=== PATIENT | male | born 1940 | race Caucasian/White ===

== ENCOUNTER 2016-07-28 05:53 | Emergency (ER) | payer BC ==
[~2016-07-28] VITALS: Ht 172.7 cm; Wt 79.5 kg
[2016-07-28 06:50] LABS: MEAN PLAT.VOLUME 8.8 uM^3 (9.0-12.4); PLATELET COUNT 218 K/uL (156-360)
[2016-07-28 07:27] LABS: ANION GAP 8 MEQ/L (2-14); CHLORIDE 104 MEQ/L (99-109); GFR ESTIMATE (CALCULATED) 53 mL/min/; GLUCOSE 135 mg/dL (70-99); POTASSIUM 4.8 MEQ/L (3.7-5.4); SAMPLE HEMOLYSIS CHECK 0; SAMPLE ICTERIC CHECK 0; SAMPLE LIPEMIA CHECK 0; SODIUM 137 MEQ/L (136-147); UREA NITROGEN (BUN) 34 mg/dL (9-23)
[2016-07-28 07:34] LABS: HEMATOCRIT 42.6 % (38.0-50.0); MCH 28.8 PG (29.0-34.0); MCHC 31.5 G/DL (30.0-36.0); MCV 91.4 FL (86-99); RBC DIS.WIDTH-CV 15.2 % (11.8-14.6); RED BLOOD COUNT 4.66 M/uL (4.00-5.50)
[2016-07-28 07:35] LABS: WHITE BLOOD COUNT 89.6 K/uL (4.1-10.2)
[2016-07-28] MEDS ORDERED: NORCO 5/3251 TABLET PO (11:32)
[2016-07-28 11:53] VITALS: BP 137/86
== END 2016-07-28 11:55 | disposition home or self-care (01) ==
LOC: EME 05:53
PROVIDERS: Emergency Medicine
DX: S22.42XA Multiple fractures of ribs, left side, initial encounter for closed fracture (principal); S27.321A Contusion of lung, unilateral, initial encounter; W06.XXXA Fall from bed, initial encounter; C91.10 Chronic lymphocytic leukemia of B-cell type not having achieved remission; D72.829 Elevated white blood cell count, unspecified
CPT/HCPCS: 71020; 71250; 80048; 85027; 99281; 99284

== ENCOUNTER 2016-11-22 22:18 | Observation (INO) | payer OTHER, BC ==
[~2016-11-22] VITALS: Ht 172.7 cm; Wt 89.9 kg
[~2016-11-22 22:18] MED LIST: NORCO 5/3251 TABLET PO
[2016-11-22 22:51] LABS: MEAN PLAT.VOLUME 9.9 uM^3 (9.0-12.4); PLATELET COUNT 170 K/uL (156-360)
[2016-11-22 22:57] LABS: HEMATOCRIT 42.1 % (38.0-50.0); MCH 30.8 PG (29.0-34.0); MCHC 33.3 G/DL (30.0-36.0); MCV 92.5 FL (86-99); RBC DIS.WIDTH-CV 13.7 % (11.8-14.6); RBC DIS.WIDTH-SD 46.2 % (39-53); RED BLOOD COUNT 4.55 M/uL (4.00-5.50); WHITE BLOOD COUNT 36.6 K/uL (4.1-10.2)
[2016-11-22 23:04] LABS: CHLORIDE 110 mEq/L (99-109); POTASSIUM 4.1 mEq/L (3.7-5.4); SODIUM 139 mEq/L (136-147)
[2016-11-22 23:06] LABS: GLUCOSE 153 mg/dL (70-99)
[2016-11-22 23:07] LABS: ANION GAP 10 MEQ/L (2-14)
[2016-11-22 23:09] LABS: GFR ESTIMATE (CALCULATED) > 59 mL/min/
[2016-11-22 23:10] LABS: UREA NITROGEN (BUN) 30 mg/dL (9-23)
[2016-11-22 23:18] LABS: TROP-I INTERPRETATION NEGATIVE; TROPONIN-I < 0.01 ng/mL (0.0-0.30)
[2016-11-23] MEDS ORDERED: FENOFIBRATE54 M1 PO (00:36)
[2016-11-23] MEDS ORDERED: LISINOPRIL5 MG PO (00:36)
[2016-11-23] MEDS ORDERED: ZOCOR80 MG PO (00:36)
[2016-11-23] MEDS ORDERED: TIZANIDINE HCL4 MG PO (00:36)
[2016-11-23] MEDS ORDERED: TAMSULOSIN HCL0.4 MG PO (00:36)
[2016-11-23] MEDS ORDERED: PEPCID20 MG PO (00:36)
[2016-11-23] MEDS ORDERED: LITE COAT ASPI325 M1 PO (00:37)
[2016-11-23 04:56] LABS: TROP-I INTERPRETATION NEGATIVE; TROPONIN-I < 0.01 ng/mL (0.0-0.30)
[2016-11-23 09:00] VITALS: BP 152/69
[2016-11-23 12:46] VITALS: BP 167/87
[2016-11-23 16:26] VITALS: BP 165/75
[2016-11-23 17:04] LABS: TROP-I INTERPRETATION NEGATIVE; TROPONIN-I 0.02 ng/mL (0.0-0.30)
== END 2016-11-23 17:37 | disposition home or self-care (01) ==
LOC: EME 22:18 → EDOF 11-23 03:29 → ENRESERV 11-23 03:30 → 5WEST 11-23 08:31
PROVIDERS: Hospitalist; Internal Medicine
DX: R07.9 Chest pain, unspecified (principal); I10 Essential (primary) hypertension; C91.10 Chronic lymphocytic leukemia of B-cell type not having achieved remission; E78.5 Hyperlipidemia, unspecified; N40.0 Benign prostatic hyperplasia without lower urinary tract symptoms; K21.9 Gastro-esophageal reflux disease without esophagitis; Z82.49 Family history of ischemic heart disease and other diseases of the circulatory system; Z79.82 Long term (current) use of aspirin; G62.9 Polyneuropathy, unspecified; M81.0 Age-related osteoporosis without current pathological fracture
CPT/HCPCS: 71020; 71275; 80048; 84484; 85027; 85379; 93005; 93306; 99281; 99285; G0378; J1644; J7040